=== PATIENT | female | born 1955 | race Caucasian/White ===

== ENCOUNTER → 2021-01-22 | Outpatient (CLI) | payer BC, OTHER ==
[~2021-01-22] MED LIST: ALPH300C PO; ASPI-496 PO; ATOR40TA78 PO; CA C1TAB42 PO; CARV12.52 PO; CETI1TAB78 PO; CINNAMON PO; FERROUS SULFATE PO; FOLIC ACID PO; INSULIN PUMP HUMALOG; LEVO137T2 PO; LISI5TAB7 PO; MULT-257 PO; MYCO360T3 PO; PANT40TA6 PO; PRED10TA PO; TACROLIMUS PO; ZOLP10TA5 PO; [UNRECOGNIZED DRUG - CODE]; [UNRECOGNIZED DRUG - CODE] PO
== END | disposition home or self-care (01) ==
LOC: CVU 10:06
PROVIDERS: ATTEND Student in an Organized Health Care Education/Training Program
DX: I34.8 Other nonrheumatic mitral valve disorders (principal); I65.23 Occlusion and stenosis of bilateral carotid arteries; I10 Essential (primary) hypertension; R09.89 Other specified symptoms and signs involving the circulatory and respiratory systems
CPT/HCPCS: 93306; 93356; 93880